=== PATIENT | female | born 1980 | race Caucasian/White ===

== ENCOUNTER 2016-07-03 11:55 | Emergency (ER) | payer BC ==
[2016-07-03 14:10] VITALS: BP 139/76
[2016-07-03] MEDS ORDERED: Ketorolac INJ* 60 MG/2 ML VIAL IM ONE (14:24)
--- NOTE | 2016-07-03 14:40 | UC ---
Back Pain HPI - HPI Summary HPI Summary: pt reports that she went dancing 2-3 nights ago and reports that low back pain began 2 days after dancing and has worsened onset. - History of Current Complaint Chief Complaint: UCBackPain Stated Complaint: LOW BACK PAIN Time Seen by Provider: 07/03/16 14:05 Hx Obtained From: Patient Hx Last Menstrual Period: 2 WKS AGO ?: No Onset/Duration: Gradual Onset, Lasting Days, Worse Since - onset Timing: Constant Severity Initially: Mild Severity Currently: Moderate Back Pain: Is Discrete @ - right side low back, Radiates To - anterior, upper right thigh Character: Sharp, Dull, Aching, Throbbing, Spasmodic, Stiffness Aggravating: Movement Alleviating: Nothing Associated Signs And Symptoms: Positive: Weakness - Allergies/Home Medications Allergies/Adverse Reactions: Allergies Allergy/AdvReac Type Severity Reaction Status Date / Time lotrimine cream Allergy Hives Uncoded 07/03/16 14:10 PMH/Surg Hx/FS Hx/Imm Hx Previously Healthy: Yes Endocrine History Of: Reports: Thyroid Disease Denies: Diabetes Cardiovascular History Of: Denies: Cardiac Disorders, Hypertension, Pacemaker/ICD Respiratory History Of: Denies: COPD, Asthma GI/ History Of: Denies: Ulcer, Renal Disease - Surgical History Surgical History: Yes Surgery Procedure, Year, and Place: tonsils,tubal,csections - Family History Known Family History: Negative: Diabetes - Social History Lives: With Family Alcohol Use: Occasionally Substance Use Type: None Smoking Status (MU): Never Smoked Tobacco - Immunization History Most Recent Influenza Vaccination: 2016 Review of Systems Constitutional: Negative Skin: Negative Eyes: Negative ENT: Negative Respiratory: Negative Cardiovascular: Negative Gastrointestinal: Negative Genitourinary: Negative Motor: Decreased ROM - low back right lower extremity Neurovascular: Negative Musculoskeletal: Arthralgia, Decreased ROM - right side low back and right lower extremity, Myalgia Neurological: Negative Psychological: Negative All Other Systems Reviewed And Are Negative: Yes Physical Exam Triage Information Reviewed: Yes Appearance: Pain Distress Vital Signs: Initial Vital Signs Temp 98.2 F 07/03/16 14:05 Pulse 98 07/03/16 14:05 Resp 16 07/03/16 14:05 BP 139/76 07/03/16 14:05 Pulse Ox 100 07/03/16 14:05 Vital Signs Reviewed: Yes Neck exam: Normal Respiratory Exam: Normal Cardiovascular Exam: Normal Musculoskeletal Exam: Other Musculoskeletal: Positive: ROM Limited @ - right lower back and lower extremity , tenderness at right sciatic Neurological Exam: Normal Psychological Exam: Normal Skin Exam: Normal Back Pain Course/Dx - Differential Dx/Diagnosis Differential Diagnosis/HQI/PQRI: Herniated Disc, Strain, Other - sciatica Provider Diagnoses: low back strain. sciatica Discharge - Discharge Plan Condition: Stable Disposition: HOME Prescriptions: Cyclobenzaprine TAB* [Flexeril TAB*] 10 mg PO TID PRN #15 tab PRN Reason: Pain Ibuprofen TAB* [Motrin TAB* 800 MG] 800 mg PO Q8H PRN #21 tab PRN Reason: Pain Patient Education Materials: Low Back Strain (ED), Lower Back Exercises (ED) Forms: *Work Release Referrals: Richi Courtney MD [Primary Care Provider] -
--- NOTE | 2016-07-03 15:12 | RAD ---
INDICATION: Low back pain COMPARISON: None TECHNIQUE: AP and oblique views of the SI joints were obtained FINDINGS: Bony mineralization is normal. The SI joints are patent. There is a calcification projecting over the minor pelvis which is likely a calcified uterine leiomyoma. There are bilateral tubal ligation clips. IMPRESSION: THE SI JOINTS APPEAR NORMAL.
== END 2016-07-03 15:12 | disposition home or self-care (01) ==
LOC: UCCORT 11:55
DX: S39.012A Strain of muscle, fascia and tendon of lower back, initial encounter (principal); X58.XXXA Exposure to other specified factors, initial encounter; Y93.41 Activity, dancing; Y92.9 Unspecified place or not applicable; M54.41 Lumbago with sciatica, right side; Z88.8 Allergy status to other drugs, medicaments and biological substances
CPT/HCPCS: 72202; 96372; 99212; G0463; J1885

== ENCOUNTER 2017-07-05 16:42 | Emergency (ER) | payer SELFPAY ==
[2017-07-05 17:25] VITALS: BP 124/82
[2017-07-05] MEDS ORDERED: Ibuprofen TAB* 600 MG PO ONE (17:41)
--- NOTE | 2017-07-05 17:44 | UC ---
UC General HPI - HPI Summary HPI Summary: Sudden onset bodyaches, chills fever, has had a cough the past few weeks, left ear pain - History of Current Complaint Chief Complaint: UCRespiratory Stated Complaint: L CHEST PAIN,FEVER,BODY ACHES Time Seen by Provider: 07/05/17 17:34 Hx Obtained From: Patient Hx Last Menstrual Period: 06/24/17 Onset/Duration: Sudden Onset, Lasting Hours Timing: Constant Onset Severity: Severe Current Severity: Severe Associated Signs & Symptoms: Positive: Cough, Dizziness, Fever, Headache, SOB, Wheezing - Allergy/Home Medications Allergies/Adverse Reactions: Allergies Allergy/AdvReac Type Severity Reaction Status Date / Time lotrimine cream Allergy Hives Uncoded 07/05/17 17:25 Home Medications: Home Medications [id number] [Nyquil Severe Cold/Flu 5-6.25-10-325 mg/15Ml] 1 liq PO BEDTIME PRN 07/05/17 [History Confirmed 07/05/17] PMH/Surg Hx/FS Hx/Imm Hx Previously Healthy: Yes - Surgical History Surgical History: Yes Surgery Procedure, Year, and Place: tonsils,tubal,csections - Family History Known Family History: Negative: Diabetes - Social History Alcohol Use: Occasionally Substance Use Type: None Smoking Status (MU): Never Smoked Tobacco - Immunization History Most Recent Influenza Vaccination: 2016 Review of Systems Constitutional: Fever, Chills, Fatigue Skin: Negative Eyes: Negative ENT: Sore Throat, Ear Ache, Nasal Discharge Respiratory: Shortness Of Breath, Cough Cardiovascular: Negative Gastrointestinal: Negative Motor: Negative Neurovascular: Negative Musculoskeletal: Arthralgia, Myalgia Neurological: Headache Psychological: Negative Is Patient Immunocompromised?: No All Other Systems Reviewed And Are Negative: Yes Physical Exam Triage Information Reviewed: Yes Appearance: Well-Nourished, Ill-Appearing, Pain Distress Vital Signs: Initial Vital Signs Temp 99.7 F 07/05/17 17:17 Pulse 86 07/05/17 17:17 Resp 16 07/05/17 17:17 BP 124/82 07/05/17 17:17 Pulse Ox 100 07/05/17 17:17 Vital Signs Reviewed: Yes Eye Exam: Normal ENT: Positive: Pharyngeal erythema - with posterior exudate, Nasal congestion, TM bulging - left, no purulence Dental Exam: Normal Neck: Positive: Supple, Nontender, Enlarged Nodes @ - bilateral cervical Respiratory Exam: Normal Respiratory: Positive: Rhonchi - right side, Wheezing - right side, Expiration, Inspiration Cardiovascular Exam: Normal Cardiovascular: Positive: RRR, No Murmur, Pulses Normal Abdominal Exam: Normal Abdomen Description: Positive: Nontender, No Organomegaly, Soft Bowel Sounds: Positive: Present Musculoskeletal Exam: Normal Musculoskeletal: Positive: Strength Intact, ROM Intact, No Edema Neurological Exam: Normal Neurological: Positive: Alert, Muscle Tone Normal Psychological Exam: Normal Skin Exam: Normal Course/Dx - Course Course Of Treatment: hx obtained, exam performed ,meds reviewed, ibuprofen given , rapid flu obtained, - Differential Dx - Multi-Symptom Provider Diagnoses: influenza B Discharge - Discharge Plan Condition: Stable Disposition: HOME Patient Education Materials: Influenza (ED) Referrals: Richi Courtney MD [Primary Care Provider] - Additional Instructions: 1. FLu B positive, take the prednisone for the serous otitis and cough 2. Increase fluids and get rest 3. Follow up with any increased respiratory symtpoms
[2017-07-05] MEDS ORDERED: Oseltamivir CAP* 75 MG PO ONE (17:50)
== END 2017-07-05 18:06 | disposition home or self-care (01) ==
LOC: UCCORT 16:42
DX: J11.1 Influenza due to unidentified influenza virus with other respiratory manifestations (principal)
CPT/HCPCS: 87502; 99212; A9270-GY; G0463